=== PATIENT | female | born 1950 | race Caucasian/White ===

== ENCOUNTER 2023-12-12 09:19 | Observation (INO) ==
--- NOTE | 2023-10-31 11:10 | PAT Medication Instructions ---
Medication Instructions Date of Service October 31, 2023 Home Medications Medication Instructions Recorded oxycodone-acetaminophen 5 mg-325 1 tab PO Q6H PRN pain #20 tabs /25/24 mg tablet (Percocet) amlodipine 5 mg tablet 5 mg PO QAM levothyroxine 137 mcg capsule 137 mcg PO QAM losartan 100 mg-hydrochlorothiazide 25 mg tablet 1 tab PO QAM metformin 850 mg tablet 850 mg PO BID metoprolol succinate 50 mg tablet,extended release 24 hr 50 mg PO HS rosuvastatin 20 mg tablet 20 mg PO QAM semaglutide 14 mg tablet (Rybelsus) 14 mg PO QAM insulin glargine 100 unit/mL subcutaneous solution (Lantus U-100 Insulin) 45 unit subcut PM oxycodone-acetaminophen 5 mg-325 mg tablet (Percocet) 1 tab PO Q6H PRN STOP 7 days before surgery semaglutide 14 mg tablet (Rybelsus) 14 mg PO QAM DO NOT take the morning of surgery losartan 100 mg-hydrochlorothiazide 25 mg tablet 1 tab PO QAM metformin 850 mg tablet 850 mg PO BID Take morning of surgery With a small sip of water, OTHERWISE NOTHING TO EAT OR DRINK AFTER MIDNIGHT: amlodipine 5 mg tablet 5 mg PO QAM levothyroxine 137 mcg capsule 137 mcg PO QAM rosuvastatin 20 mg tablet 20 mg PO QAM oxycodone-acetaminophen 5 mg-325 mg tablet (Percocet) 1 tab PO Q6H PRN(if needed) Take evening before surgery metformin 850 mg tablet 850 mg PO BID metoprolol succinate 50 mg tablet,extended release 24 hr 50 mg PO HS insulin glargine 100 unit/mL subcutaneous solution (Lantus U-100 Insulin) 45 unit subcut PM oxycodone-acetaminophen 5 mg-325 mg tablet (Percocet) 1 tab PO Q6H PRN(if needed) Other Notes If you have any questions please call us at [phone] or [phone] or [phone] or [phone]
--- NOTE | 2023-11-05 12:17 | Anesthesiology Consultation ---
Date of Service November 05, 2023 Assessment & Plan (1) Encounter for pre-operative examination: - check BSG am DOS. Outpatient joint assessment: Patient is currently scheduled for inpatient pathway. If re-evaluated and patient/surgeon requests outpatient pathway, patient is acceptable candidate for outpatient joint program from anesthesia standpoint pending surgeon's office assessment of pt motivation/support/completion of same day joint program preop requirements. Chart Review Chart Review: Acceptable Risk for Surgery and Patient seen in Pre Admission Testing Teaching & Discussion Pre-Anesthesia Teaching/Discussion Notes: Instructed NPO after midnight before surgery, except medications with 15 cc of water. Medication instructions provided according to the PAT guidelines. History Surgery Operation Date: 12/12/23 10:05 Proposed Procedures p Right Reverse Total Shoulder Arthroplasty - Kevin Walsh DO Height/Weight Height: 5 ft 4 in Weight: 85.2 kg Allergies Allergy/AdvReac Type Severity Reaction Status Date / Time Penicillins Allergy Intermediate Hives Verified 11/05/23 12:25 Medications Home Medications Medication Instructions Recorded Confirmed Last Taken amlodipine 5 mg tablet 5 mg PO QAM 06/17/23 10/30/23 10/23/23 05:30 levothyroxine 137 mcg capsule 137 mcg PO QAM 06/17/23 10/30/23 10/23/23 05:30 losartan 100 1 tab PO QAM 06/17/23 10/30/23 10/23/23 05:30 mg-hydrochlorothiazide 25 mg tablet metformin 850 mg tablet 850 mg PO BID 06/17/23 10/30/23 Unknown metoprolol succinate 50 mg 50 mg PO HS 06/17/23 10/30/23 Unknown tablet,extended release 24 hr rosuvastatin 20 mg tablet 20 mg PO QAM 06/17/23 10/30/23 10/23/23 05:30 semaglutide 14 mg tablet (Rybelsus) 14 mg PO QAM 06/17/23 10/30/23 Unknown insulin glargine 100 unit/mL 45 unit subcut PM 10/20/23 10/30/23 Unknown subcutaneous solution (Lantus U-100 Insulin) oxycodone-acetaminophen 5 mg-325 1 tab PO Q6H PRN pain #20 tabs 10/23/23 10/30/23 Unknown mg tablet (Percocet) esomeprazole magnesium 20 mg 20 mg PO QAM 11/05/23 11/05/23 Unknown capsule,delayed release (Nexium) Additional Notes: Patient was instructed semaglutide needs stopped only morning of surgery; to continue esomeprazole as usual. She was also instructed to stop multivitamin morning of surgery. She verbalized understanding and agreement, denied additional medications. Past Medical History Medical History (Updated 11/05/23 @ 12:28 by Mayra Dyson PA-C) Diabetes IDDM Dyslipidemia GERD (gastroesophageal reflux disease) controlled, stable per pt HTN (hypertension) controlled, stable per pt Hypothyroidism Patient denies h/o stroke, seizures, heart attack, heart failure, blood clots/DVTs or blood transfusions. Exercise / Class Metabolic Activity II 4-5 Yardwork/Stairs/Walk up hill (denies chest discomfort or shortness of breath with 1 FOS) Past Surgical History Surgical History History of carpal tunnel surgery of right wrist Hx of colonoscopy Hx of removal of cyst back Hx of tubal ligation Past Anesthesia History No Family Hx of Anesthesia Complications and Other (slow to wake; h/o joan- operative hypoglycemia) History of PONV No Hx of PONV and No Hx of Motion Sickness Social History Smoking Status: Never smoker Do You Dip or Chew Tobacco: No Hx Alcohol Use: No Hx Substance Use: No substance use type: does not use Review of Systems Patient denies chest pain, shortness of breath, dyspnea on exertion, snoring, witnessed apneas, fever, chills, cough, wheezing, or palpitations. Physical Exam Vital Signs Vitals BP 132/74 P 71 TEMP 98.5 SP02 97% on RA RESP 18 Physical Patient resting comfortably in chair in no acute distress, alert and oriented, responding appropriately throughout visit Full cervical extension range of motion without pain TMD < 3 finger breadths Mallampati Score 3 Dentition: edentulous, full upper and lower dentures Lungs: normal respiratory effort. Good air movement, clear throughout to auscultation, no adventitious breath sounds Cardiac: regular rate and rhythm, no murmurs noted Carotid arteries: negative bruit bilat Lab Results Anesthesia Preop Results Results Anesthesia Widget: WBC 8.79 K/ul (4.8-10.8) 11/05/23 Hgb 12.8 g/dl (12.0-16.0) 11/05/23 Hct 36.8 % (37.0-47.0) L 11/05/23 Plt 305 K/uL (130-400) 11/05/23 Na 140 mmol/L (136-145) 11/05/23 K 4.6 mmol/L (3.5-5.1) 11/05/23 Cl 102 mmol/L (98-107) 11/05/23 CO2 26 mmol/L (21-32) 11/05/23 BUN 26 mg/dl (6-23) H 11/05/23 Creat 1.21 mg/dl (0.6-1.2) H 11/05/23 Glucose Level 92 mg/dl (70-99(Fasting)) 11/05/23 POC Glucose 88 mg/dl (70-99) 10/23/23 PT 10.7 Seconds (9.0-12.0) 11/05/23 PTT 30 Seconds (21-31) 11/05/23 INR 1.0 (0.9-1.1) 11/05/23 HA1c 6.5 % (4.5-5.6) H 11/05/23 Blood Type O Positive 11/05/23 Antibody Screen NEGATIVE 11/05/23 Testing Electrocardiogram Date: 11/05/23 NSR, rate 77 bpm Chest X-Ray Date: 11/05/23 No acute process of the chest.
--- NOTE | 2023-12-09 07:48 | History & Physical Report ---
Date of Service December 09, 2023 Assessment & Plan (1) Proximal humerus fracture: We will proceed with a right reverse shoulder arthroplasty. Postoperatively she will be placed in a sling and kept overnight in the hospital for postop medical management. She plans to go to outpatient physical therapy upon discharge. History of Present Illness Chief Complaint: Nonunion right proximal humerus. Primary Care Provider: NAZ PCP Leslye is a pleasant 73-year-old female who fell a year ago and sustained a right proximal humerus fracture. She was treated by another physician. 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 She continues to have a lot of pain in the shoulder. After failed extensive conservative treatment, she has elected to proceed with a right reverse shoulder arthroplasty.. Allergies Allergy/AdvReac Type Severity Reaction Status Date / Time Penicillins Allergy Intermediate Hives Verified 11/05/23 12:25 Home Medications Medication Instructions Recorded Confirmed Type amlodipine 5 mg tablet 5 mg PO QAM 06/17/23 10/30/23 History levothyroxine 137 mcg capsule 137 mcg PO QAM 06/17/23 10/30/23 History losartan 100 1 tab PO QAM 06/17/23 10/30/23 History mg-hydrochlorothiazide 25 mg tablet metformin 850 mg tablet 850 mg PO BID 06/17/23 10/30/23 History metoprolol succinate 50 mg 50 mg PO HS 06/17/23 10/30/23 History tablet,extended release 24 hr rosuvastatin 20 mg tablet 20 mg PO QAM 06/17/23 10/30/23 History semaglutide 14 mg tablet (Rybelsus) 14 mg PO QAM 06/17/23 10/30/23 History insulin glargine 100 unit/mL 45 unit subcut PM 10/20/23 10/30/23 History subcutaneous solution (Lantus U-100 Insulin) oxycodone-acetaminophen 5 mg-325 1 tab PO Q6H PRN pain #20 tabs 10/23/23 10/30/23 Rx mg tablet (Percocet) esomeprazole magnesium 20 mg 20 mg PO QAM 11/05/23 11/05/23 History capsule,delayed release (Nexium) Past Med/Surg History Medical History GERD (gastroesophageal reflux disease) controlled, stable per pt Diabetes IDDM Dyslipidemia Hypothyroidism HTN (hypertension) controlled, stable per pt Surgical History History of carpal tunnel surgery of right wrist Hx of colonoscopy Hx of removal of cyst back Hx of tubal ligation Social History Smoking Status: Never smoker Second Hand Exposure: No; Do You Dip or Chew Tobacco: No; Hx Alcohol Use: No Hx Substance Use: No Preferred Language: Czech Communication Ability: Effective Draw Hand Required: No Beliefs That Will Affect Care: None Current Living Situation: Spouse Feels Safe at Home: Yes Assistive Devices: Denture - Upper and Denture - Lower Review of Systems All systems reviewed & are unremarkable except as noted in HPI & below. Physical Exam On physical exam of the right shoulder, she has decreased range of motion. She has pain at end ranges of motion. She is a lot of pain around the glenohumeral joint region.. Constitutional WD/WN, vitals as above Eyes PERRL, conjunctivae normal, anicteric sclerae ENMT external ear and nose normal, oropharynx normal Neck trachea midline, no thyromegaly Respiratory normal respiratory effort Cardiovascular RRR, no murmur, no edema Gastrointestinal (Abdomen) normal bowel sounds, soft, nontender, no hepatosplenomegaly Psychiatric A+Ox3, euthymic affect Results & Data Results & Data Laboratory Results . Diagnostic Findings X-rays of the right shoulder show a varus impacted fracture nonunion of the right proximal humerus.. PG Care Time/CCT Total # of Minutes Spent Total Time Spent with Patient: Total time spent is greater than 50% in coordination of care (as documented) at patient's floor/unit and/or counseling patient: Coding Level of Care Code None Diagnoses Proximal humerus fracture S42.209A
[~2023-12-12 09:19] MED LIST: BUPIVACAINE 0.5 % 5 MG/1 ML PF 10ML VIAL ONE
[2023-12-12] MEDS ORDERED: PROPOFOL IV EMULSION 10 MG/ML 20 ML VIAL IV ONE (09:26)
[2023-12-12] MEDS ORDERED: fentaNYL citrate PF 100 MCG/2 ML VIAL ONE (09:27)
[2023-12-12] MEDS ORDERED: MIDAZOLAM HCL 1 MG/ML 2ML VIAL ONE (09:27)
[2023-12-12] MEDS ORDERED: LIDOCAINE 2% 2 ML VIAL/AMP(20MG/ML) INFIL ONE (09:31)
[2023-12-12] MEDS ORDERED: ONDANSETRON INJ 2 MG/ML 2 ML VIAL ONE (09:31)
[2023-12-12] MEDS: LR 15ML/HR IV SCH (10:06)
[2023-12-12] MEDS: ACETAMINOPHEN 500 MG TAB PO SCH ×2 (10:06→14:48)
[2023-12-12] MEDS: LR 60ML/HR IV SCH (10:06)
[2023-12-12] MEDS: dexAMETHasone**PF** 10 MG/ML VIAL IV SCH (10:07)
[2023-12-12] MEDS: FAMOTIDINE 20 MG TAB PO SCH (10:07)
[2023-12-12] MEDS: GABAPENTIN 300 MG CAP PO SCH (10:07)
--- NOTE | 2023-12-12 10:15 | History & Physical Bridge Note ---
Date of Service December 12, 2023 History & Physical Bridge Note I have examined the patient, reviewed the History & Physical and in the interval since the performance of the History & Physical I have noted the following changes of clinical significance: no changes noted
[2023-12-12] MEDS ORDERED: BUPIVACAINE 0.5 % 5 MG/1 ML PF 10ML VIAL ONE (10:46)
[2023-12-12] MEDS ORDERED: HYDROmorphone INJ 2 MG/ML SYR/VIAL IV PRN (10:47)
[2023-12-12] MEDS ORDERED: ePHEDrine sulfate 50 MG/ML AMP IV PRN (10:47)
[2023-12-12] MEDS ORDERED: ONDANSETRON INJ 2 MG/ML 2 ML VIAL IV PRN ×2 (10:47→13:46)
[2023-12-12] MEDS ORDERED: ATROPINE SULFATE 0.1 MG/ML 10ML SYR IV PRN (10:47)
[2023-12-12] MEDS ORDERED: fentaNYL citrate PF 100 MCG/2 ML VIAL IV PRN (10:47)
[2023-12-12] MEDS: TRANEXAMIC ACID 1,000 MG **IV Pre-op IV SCH (10:54)
[2023-12-12] MEDS: ceFAZolin 2000MG 2,000 MG/15 ML SYR IV SCH ×2 (10:59→18:26)
[2023-12-12] MEDS ORDERED: ePHEDrine sulfate 50 MG/ML AMP ONE (11:27)
[2023-12-12] MEDS: ROPIV 0.5% 246mg, Ketorolac 30mg, EPINEPHrine 0.5mg in NSS INFIL SCH (11:41)
[2023-12-12] MEDS: ORTHO JOINT ANESTHETIC ONE (11:41)
--- NOTE | 2023-12-12 12:12 | Operative Report ---
PG Post Operative Report Pre & Post Diagnosis Operation Date: 12/12/23 11:00 Pre-Op Diagnosis: Fracture malunion right proximal humerus Post-Op Diagnosis: Fracture malunion right proximal humerus I identified the patient and participated in the time-out.: Yes Procedure Operation Date: 12/12/23 11:00 Actual Procedures p Right Reverse Total Shoulder Arthroplasty, Uncemented(Right) - Kevin Walsh DO Surgeon Kevin Walsh DO Credit Risk Management Director Kevin Alexander PA-C Estimated Blood Loss 200 Findings Consistent with Post-Op Diagnosis Specimens Right humeral head Description of Procedure Implants used: I used a [employer] Comprehensive reverse total shoulder arthroplasty system with a size 5 press fit micro humeral stem, a +6 offset humeral tray and a +3 retentive humeral bearing, a 25 mm small augment baseplate with a 6.5 mm central screw and superior and inferior locking screws, and a size 36 mm eccentric glenosphere. Leslye arrived at [facility] for the above procedure. She was seen in the preoperative holding area and the operative extremity was identified and signed. She was given a preoperative antibiotic, TXA, and an interscalene nerve block. She was taken back to the operating room, laid on table in supine position, and put under general anesthesia. She was then put into the beachchair position. The shoulder was then prepped and draped in sterile fashion. A timeout was done and the patient and the operative extremity was properly identified. A deltopectoral approach was used. Dissection was taken down through the fascia and the deltoid was retracted laterally and the conjoined tendon was retracted medially. The anterior shoulder was exposed. The biceps tendon was chronically torn. The subscapularis was then directly released off the lesser tuberosity with a peel technique. The inferior capsule was released and the humeral head was dislocated. A canal finding reamer was sent down the center of the humeral canal. Sequential reaming up to a size 5 reamer was done. Off that reamer, a proximal humeral resection guide was placed. The proximal humerus was resected at 135 of inclination and 25 of retroversion. Osteophytes were then removed and the glenoid was exposed. Time was spent doing a complete capsular and labral release. The glenoid guide was then placed in the inferior aspect of the glenoid. A 3.2 mm Steinmann pin was then placed into the glenoid vault at 10 of inclination. The glenoid baseplate was then reamed. The final size 25 mm small augment baseplate was then impacted in the place. A 6.5 mm central screw was then placed followed by superior and inferior locking screws. A 36 mm eccentric glenosphere was then impacted into place. Surrounding soft tissues were then injected with 100 cc an orthopedic pain control cocktail. The proximal humerus was then exposed. Sequential broaching of the humerus up to a size 5 broach was done. Off that broach a +6 offset and +3 retentive humeral tray was trialed. The shoulder was then reduced, brought through a full range of motion, and felt to be stable. The shoulder was then dislocated and the broach was removed. The final size 5 micro press-fit humeral stem was then impacted into place. A +3 retentive humeral bearing was then snapped onto a +6 offset humeral tray. The humeral tray was then impacted onto the humeral stem. The shoulder was once again reduced, brought through a full range of motion, and felt to be stable. The subscapularis was retracted and unable to be repaired. A dilute betadyne lavage was then done for 3 minutes. The joint was then irrigated with normal saline solution. Hemostasis was obtained. The interval was closed with 2-0 Vicryl suture. The skin was then closed with 2-0 Vicryl and mickie. A Silverlon dressing was placed and the arm was rested in a regular arm sling. She was then extubated and transferred to a hospital bed. She taken to the postanesthesia care unit in stable condition. She tolerated the procedure well. Kevin Alexander PA-C, was present for the entire procedure. He was critical for patient positioning, prepping, draping, retraction exposure, wound closure and application of sterile dressing. I attest to the content of the Intraoperative Record and any orders documented therein. Any exceptions are noted below.
--- NOTE | 2023-12-12 13:11 | Anesthesiology Progress Note ---
Date of Service December 12, 2023 Anesthesia Post Procedure Vital Signs Vital Signs: Temp Pulse Pulse Resp BP Pulse Ox O2 Del Method 12/12/23 13:05 36.2 C L 85 20 146/71 H 92 Nasal Cannula 12/12/23 12:55 85 17 149/73 H 90 Nasal Cannula 12/12/23 12:45 87 19 148/72 H 94 Oxymask 12/12/23 12:35 85 16 154/68 H 93 Oxymask 12/12/23 12:25 36.0 C L 100 H 19 158/84 H 95 Oxymask 12/12/23 09:45 37 C 73 20 154/68 H 96 Room Air O2 Flow Rate 12/12/23 13:05 3 12/12/23 12:55 2 12/12/23 12:45 6 12/12/23 12:35 6 12/12/23 12:25 10 12/12/23 09:45 Pain Intensity Right Shoulder: Pain Intensity: 1 Transfer of Care Handoff Completed per policy Notes Mental Status: alert / awake / arousable and participated in evaluation Patient Amnestic to Procedure: Yes Nausea / Vomiting: adequately controlled Pain: adequately controlled Airway Patency, RR, SpO2: see Notes below (pt on 2LNC. pt desaturates while sleepy. may have underlying LIMA) BP & HR: stable & adequate Hydration State: stable & adequate Anesthetic Complications: no major complications apparent and Pt Satisfied with anesthetic care
--- NOTE | 2023-12-12 13:45 | XRay Report ---
XR shoulder RT min 2V routine CLINICAL HISTORY: Post shoulder surgery COMPARISON STUDY: None. FINDINGS: Status post reverse right total shoulder arthroplasty. The hardware appears intact. No frac ture or dislocation. Skin mickie are in place. IMPRESSION: Status post reverse right total shoulder arthroplasty. No evidence for hardware complica tion. ACT 112: Negative or not required by law. Electronically signed by: Abel Contreras M.D. 12/12/2023 1:44 PM
[2023-12-12] MEDS ORDERED: HYDROmorphone INJ 0.5 MG/0.5 ML SYR IV PRN (13:46)
[2023-12-12] MEDS ORDERED: NALOXONE HCL 0.4 MG/1 ML VIAL/CARP IV PRN (13:46)
[2023-12-12] MEDS ORDERED: PHARMACY GLYCEMIC MGMT CONSULT PRN (13:46)
[2023-12-12] MEDS ORDERED: MAGNESIUM HYDROXIDE SUSP 30 ML UDC PO PRN (13:46)
[2023-12-12] MEDS ORDERED: bisacodyL 10 MG SUPP PR PRN (13:46)
[2023-12-12] MEDS ORDERED: METOCLOPRAMIDE HCL INJ 5 MG/ML 2 ML VIAL IV PRN (13:46)
[2023-12-12] MEDS ORDERED: oxyCODONE HCL IR 5 MG TAB (IMMEDIATE RELEASE) PO PRN (13:46)
--- NOTE | 2023-12-12 14:23 | Pharmacy Report ---
Pharmacy Glycemic Short Note 2 - Date of Service December 12, 2023 - Glycemic Short BSG Results (Last 24 hours): 12/12/23 12/12/23 09:47 12:29 POC Glucose 119 H 154 H OUTPATIENT ANTIDIABETIC REGIMEN: * Lantus 45 units SC HS * Metformin 850 mg PO BID * Semaglutide 14 mg PO daily HbA1c: 6.5% (11/05/23) ASSESSMENT: * LW is a 73 year old female POD #0 s/p right reverse total shoulder arthroplasty * Received 10 mg IV dexamethasone in OR w/ no ongoing steroids ordered at this time * Preop BSG of 119 mg/dL, postop BSG of 154 mg/dL * HbA1c of 6.5% suggests excellent outpatient glycemic management * Plan to change home insulin dose to achieve ~50/50 basal/bolus split PLAN FOR INPATIENT GLYCEMIC CONTROL: * Hold outpatient oral diabetes medications * Basal insulin * Lantus 30 units SC x 1 (~0.4 unit/kg) * Bolus insulin * NovoLog per scale ACHS or Q6hrs while NPO * Goal Range: Low 110 mg/dL - High 140 mg/dL * Correction Factor: 20 mg/dL/unit * Nutritional / Prandial insulin per carb ratio of 1 unit per 6 grams CHO consumed
[2023-12-12] MEDS ORDERED: GLUCOSE 10 TAB/TUBE PO PRN (14:30)
[2023-12-12] MEDS ORDERED: DEXTROSE 50% 50 ML SYRINGE IV PRN (14:30)
[2023-12-12] MEDS ORDERED: CARBOHYDRATES FOR HYPOGLYCEMIA PO PRN (14:30)
[2023-12-12] MEDS ORDERED: GLUCOSE 40% GEL 15 GM TUBE PO PRN (14:30)
[2023-12-12] MEDS ORDERED: GLUCAGON FOR INJ 1 MG VIAL IM PRN (14:30)
[2023-12-12] MEDS: SODIUM CHLORIDE 0.9% 1,000 ML IV SCH (14:54)
[2023-12-12] MEDS: KETOROLAC TROMETHAMINE 15 MG/ML VIAL IV SCH (14:56)
[2023-12-12] MEDS: LANTUS PER UNIT CHARGE SC ONE (15:12)
[2023-12-12] MEDS ORDERED: LANTUS PER UNIT CHARGE SC ONE ×2 (16:30)
[2023-12-12] MEDS: INSULIN ASPART PER UNIT CHARGE SC SCH (18:17)
[2023-12-12] MEDS: METOPROLOL SUCC 50MG EXT REL TAB PO SCH (21:09)
[2023-12-12] MEDS: SENNA 8.6 MG TAB PO SCH (21:09)
[2023-12-12] MEDS: DOCUSATE SODIUM 100 MG CAP PO SCH (21:10)
[2023-12-13] MEDS: LEVOTHYROXINE SODIUM 137 MCG TABLET PO SCH (06:10)
--- NOTE | 2023-12-13 07:53 | Surgery Progress Note ---
Date of Service December 13, 2023 Assessment & Plan (1) Status post reverse total replacement of right shoulder: Plan: 73-year-old female postop day 1 from a right reverse shoulder arthroplasty doing well. Pain is controlled. She is neurologically intact. Plan: He is going undergo therapy this morning. As long things go well we will discharge her to home. She will follow-up in clinic in 2 weeks. Admission and Anticipated Discharge Date Admission Date: December 12, 2023 Subjective 73-year-old female postop day 1 from a right shoulder arthroplasty. She is doing pretty well this morning. Her nerve function is returned. Really not have any pain. No chest pain or shortness of breath. Physical Exam Physical Exam: Physical examination was a pleasant elderly female. She sitting up in bed looks pretty comfortable. Examination of the right arm reveals the dressing be clean dry and intact. Sling is in place. She can flex extend her fingers and her wrist appropriately. She is neurologically intact. Respiratory: normal respiratory effort, lungs clear to auscultation Cardiovascular: RRR, no murmur, no edema Gastrointestinal (Abdomen): normal bowel sounds, soft, nontender, no hepatosplenomegaly Results & Data Vital Signs (Past 12 Hours) Vital Signs Temp Pulse Resp BP Pulse Ox O2 Del Method O2 Flow Rate 12/13/23 07:39 36.9 C 70 16 144/79 H 93 Nasal Cannula 2 12/13/23 03:35 36.4 C L 84 16 144/77 H 94 Nasal Cannula 2 12/12/23 23:07 36.5 C 86 18 138/79 93 Nasal Cannula 2 12/12/23 21:12 84 116/69 12/12/23 20:02 Nasal Cannula 2 PG Care Time/CCT Total # of Minutes Spent Total Time Spent with Patient: Total time spent is greater than 50% in coordination of care (as documented) at patient's floor/unit and/or counseling patient: Coding Level of Care Code 93985 Post Operative Follow-Up Diagnoses Status post reverse total replacement of right shoulder Z96.611
[2023-12-13] MEDS: LOSARTAN/HCTZ 50/12.5MG TAB PO SCH (09:09)
[2023-12-13] MEDS: ROSUVASTATIN CALCIUM 20 MG TAB PO SCH (09:09)
[2023-12-13] MEDS: MULTIVITAMIN TAB PO SCH (09:09)
[2023-12-13] MEDS: amLODIPine BESYLATE 5 MG TAB PO SCH (09:09)
--- NOTE | 2023-12-15 13:50 | Discharge Summary ---
Date of Service December 15, 2023 Admission HPI (Per Admitting) Leslye is a pleasant 73-year-old female who fell a year ago and sustained a right proximal humerus fracture. She was treated by another physician. 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 She continues to have a lot of pain in the shoulder. After failed extensive conservative treatment, she has elected to proceed with a right reverse shoulder arthroplasty.. Admission Exam (Per Admitting) On physical exam of the right shoulder, she has decreased range of motion. She has pain at end ranges of motion. She is a lot of pain around the glenohumeral joint region.. Principal Diagnosis Same as "Discharge Diagnosis" noted below under Discharge Instructions. Discharge Data Procedures Performed Operation Date: 12/12/23 11:00 Actual Procedures p Right Reverse Total Shoulder Arthroplasty, Uncemented(Right) - Kevin romero DO Ordered Studies 12/12/23 05:00 US - OR guided needle placemen Routine Hospital Course (1) Status post reverse total replacement of right shoulder: On December 12, 2023 Leslye arrived at [facility] and underwent a right reverse shoulder replacement without complication. She had a general anesthetic and a right interscalene nerve block. Postoperatively she was placed in a sling and transferred to the general orthopedic floors. Her hospital course was uneventful. On postop day #1, her vital signs were stable and her pain was well-controlled. She was able to participate well with physical therapy doing ambulation and range of motion exercises. She was then discharged home. She will follow-up with orthopedics in 2 weeks. PG Care Time/CCT Total # of Minutes Spent Total Time Spent with Patient: Total time spent is greater than 50% in coordination of care (as documented) at patient's floor/unit and/or counseling patient: Discharge Plan Discharge Items Patient Disposition: Home - Self-Care Reason For Visit: DJD Right Shoulder Discharge Diagnosis: Right reverse shoulder replacement Activity: Per Instructions section Non-emergency contact: Surgeon Call non-emergency contact if: your wound has increased redness and your wound has increased drainage Follow-up/Referrals: Kevin Walsh DO [Physician] - 12/30/23 11:20 am Ada Recio PA [Primary Care Provider] - Diet: Regular Addtl Attending Provider Instructions: Activity and Therapy Recommendations: * If you are using [facility] then therapy will be provided at your home until they feel you have accomplished all of your goals. * If you are using [facility] then Physical Therapy will be provided until they feel you are ready to start Outpatient Physical Therapy. * If you are not using home therapy then Outpatient Physical Therapy should start about 3-5 days from your day of surgery. Therapy will last about 8-12 weeks * Wear your sling for 3 weeks, unless otherwise instructed. You may remove your sling to shower and to dress, but otherwise, you should be in your sling at all times, including while sleeping * The shoulder replacement is very stable and you can use your hand while in the sling * You were shown a series of exercises in the hospital. Do these exercises daily including the exercises you were shown in physical therapy. Medications: * Narcotic You will likely be sent home from the hospital with a prescription for the narcotic pain medication that worked best throughout your stay. * Cefadroxil -take the antibiotic twice a day for 10 days to help with infection. * Other medications may be prescribed for specific circumstances. If you have any questions, please call the office at . * Resume previous home medications unless otherwise instructed Dressing Care: Leave the Silverlon dressing in place for 7 days. After 7 days you may remove the dressing. If the incision is not draining then you may leave the mickie open to air. If there is a little bit of drainage or if the mickie are getting stuck on your clothing then cover the incision with a dry dressing. The mickie will be removed at your 2 week follow-up appointment. Showering: You may shower with the Silverlon dressing in place. Do not let the shower spray hit the dressing directly. Pat the Silverlon dressing dry. If the dressing becomes wet underneath, then simply remove the dressing. Keep the incision dry until you are 7 days out from the day of surgery. After 7 days you may remove the Silverlon dressing and shower with the mickie exposed. Let soapy water run over the mickie and pat them dry. Do not scrub or soak the incision. Things To Watch For: * Drainage from the incision site that occurs more than one week after your surgery. * Increased redness at the incision site. * Fever above 102 degrees Fahrenheit. * Unusual chest pain or shortness of breath. * Call [facility] at with any of the above pro blems Follow-Up Visit: Follow-up with Dr. Walsh's PA (Kevin Alexander) 2-3 weeks after your day of surgery. He will remove your mickie and answer any questions. If you have any additional questions or concerns, Dr Walsh is usually in the office at the same time and will be available An appointment was probably scheduled when you signed-up for surgery in the office. If you have any questions call More detailed instructions as well as Frequently Asked Questions were provided in a folder by our office when you signed-up for surgery. Please review these instructions when you get home. If you have any further questions or concerns, please feel free to call the office at [phone] Pending Studies at Discharge: No Stand-Alone Forms: [facility], Pain - Opioid Pain Management Medications and DC Order Prescriptions: New oxycodone 5 mg capsule 5 mg PO Q6H PRN (Reason: pain) Qty: 30 0RF cefadroxil 500 mg capsule 500 mg PO BID 10 Days Qty: 20 0RF Continued levothyroxine 137 mcg capsule 137 mcg PO QAM metformin 850 mg tablet 850 mg PO BID rosuvastatin 20 mg tablet 20 mg PO QAM amlodipine 5 mg tablet 5 mg PO QAM metoprolol succinate 50 mg tablet extended release 24 hr 50 mg PO HS Rybelsus 14 mg tablet 14 mg PO QAM losartan-hydrochlorothiazide 100-25 mg tablet 1 tab PO QAM insulin glargine [Lantus U-100 Insulin] 100 unit/mL Solution 45 unit SUBCUT PM esomeprazole magnesium [Nexium] 20 mg Capsule,Delayed Release(Dr/Ec) 20 mg PO QAM Discontinued oxycodone-acetaminophen [Percocet] 5-325 mg tablet 1 tab PO Q6H PRN (Reason: pain) Qty: 20 0RF Discharge Orders: Discharge Order (Routine); Ordered 12/13/23 Ordered By: Demar Gregorio/Other Patient Handouts: Shoulder Replace Home Recovery Admission Data Admit Date/Time: 12/12/23 12:27 Attending Provider: Kevin Walsh Admit Provider: Kevin Walsh Primary Care Provider: Ada Recio Other Interventions: Discharge Summary Assessment (RN) Last Done: 12/13/23 10:20
== END 2023-12-13 11:07 | disposition home or self-care (01) ==
LOC: ASU 09:19 → PACUINP 09:19 → 3N 14:21